=== PATIENT | male | born 1950 | race Caucasian/White ===

== ENCOUNTER → 2021-05-29 | Outpatient (CLI) | payer OTHER, BC | END | disposition home or self-care (01) | LOC: PPH VACUNA 08:00 | PROVIDERS: ATTEND Emergency Medicine Pediatric Emergency Medicine | DX: Z23 Encounter for immunization (principal) ==

== ENCOUNTER 2025-05-10 09:33 | Emergency (ER) | payer OTHER ==
[~2025-05-10] VITALS: Ht 172.7 cm; Wt 81.6 kg
[2025-05-10] MEDS ORDERED: EZALLOR SPRINKLE5 MG (10:03)
[2025-05-10] MEDS ORDERED: ONDANSETRON HCL 4 MG in 0.9 % SODIUM CHLORIDE 50 ML IV ONE (10:30)
[2025-05-10] MEDS ORDERED: FAMOTIDINE/PF 20 MG in 0.9 % SODIUM CHLORIDE 8 ML IV PUSH ONE (10:30)
[2025-05-10] MEDS ORDERED: 0.9 % SODIUM CHLORIDE 1,000 ML IV SCH (10:30)
[2025-05-10 11:55] LABS: BASO % 0.7 % (0.1-1.2); EOS # 0.23 (0.04-0.54); EOS % 2.7 % (0.7-7.0); LYMPH # 1.69 (1.18-3.74); LYMPH % 19.9 % (19.3-53.1); MEAN PLATELET VOLUME 10.50 fl (9.4-12.4); MONO # 0.99 (0.24-0.82); MONO % 11.7 % (4.7-12.5); NEUT # 5.48 (1.56-6.13); NEUT % 64.5 % (34.0-71.1); RED CELL DISTRIBUTION WIDTH 13.0 % (11.6-14.4)
[2025-05-10 12:20] LABS: INR 0.95
[2025-05-10 12:29] LABS: ALT/SGPT 32.0 U/L (12-78); AST/SGOT 19.0 U/L (15-37); BILIRUBIN TOTAL 0.79 mg/dL (0.3-1.2); BUN CREA RATIO 18.0 (7.0-25.0); CREATININE SERUM 1.42 mg/dL (0.70-1.30); GFR 48.87; GLOBULINA 4.1 G/DL (2.4-3.5); GLUCOSE FASTING 96.0 mg/dL (65-100); OSMOLALITY SERUM 284.0 MOSM/KG (275-295)
[2025-05-10] MEDS ORDERED: PIPERACILLIN/TAZOBACTAM SODIUM 3.375 GM in DEXTROSE 5 % IN WATER 100 ML IV ONE (15:00)
[2025-05-10] MEDS ORDERED: POLYETHYLENE GLYCOL 3350 17 GM BLIST.PACK PO ONE (15:00)
[2025-05-10] MEDS ORDERED: DICY20TA PO (15:07)
[2025-05-10] MEDS ORDERED: INTESTINEX680 M1 PO (15:07)
[2025-05-10] MEDS ORDERED: PEPCID AC20 MG PO (15:07)
[2025-05-10] MEDS ORDERED: AMOX1TAB5 PO (15:07)
[2025-05-10] MEDS ORDERED: MIRALAX17 GM PO (15:07)
[2025-05-10] MEDS ORDERED: PIPERACILLIN/TAZOBACTAM SODIUM 3.375 GM VIAL IV ONE (15:12)
== END 2025-05-10 16:18 | disposition home or self-care (01) ==
LOC: ER 09:33
PROVIDERS: General Practice
DX: R10.32 Left lower quadrant pain (principal); K57.32 Diverticulitis of large intestine without perforation or abscess without bleeding; K59.00 Constipation, unspecified
CPT/HCPCS: 74176; 96365; 96366; 99283; J2405; J2543; J3490; J7030

== ENCOUNTER 2025-05-13 09:41 | Inpatient (IN) | payer OTHER ==
[~2025-05-13] VITALS: Ht 182.9 cm; Wt 81.6 kg
[~2025-05-13 09:41] MED LIST: AMOX1TAB5 PO; DICY20TA PO; EZALLOR SPRINKLE5 MG; INTESTINEX680 M1 PO; MIRALAX17 GM PO; PEPCID AC20 MG PO
[2025-05-13] MEDS ORDERED: ABATINEX680 MG PO (12:24)
[2025-05-13] MEDS ORDERED: DICYCLOMIN10 MG/5 M1 (12:25)
--- NOTE | 2025-05-13 12:32 | NUR ---
S ERECIBE PACIENTE ALERTA Y CONCIENTE X3. EL MISMO REFIERE TENER DOLOR ABDOMINAL Y VENIR POT DIOVERTICULITIS. SE PROCEDE A KAJAL S/V A PACIENTE Y SE REALIZA EKG AL MISMO. TEMI ES EVALUADO POR LA DR. MALDONADO QUIEN INDICA ACOSTAR A PACIENTE. SE PROCEDE A UBICAR A PACIENTE EN [place] 11 CON BARANDAS ELEVADAS Y NIVEL MAS BAJO DE LA MISMA.
[2025-05-13] MEDS ORDERED: KETOROLAC TROMETHAMINE 30 MG VIAL IV ONE ×2 (13:00→15:15)
[2025-05-13] MEDS ORDERED: ENALAPRILAT DIHYDRATE 1.25 MG/ML VIAL IV ONE ×2 (13:00→13:17)
[2025-05-13] MEDS ORDERED: METRONIDAZOLE/SODIUM CHLORIDE 500 MG/100 ML PIGGYBACK IV ONE ×2 (13:00→13:18)
[2025-05-13] MEDS ORDERED: ONDANSETRON HCL 2 MG/ML VIAL IV ONE (13:00)
[2025-05-13] MEDS ORDERED: FAMOTIDINE/PF 20 MG/2 ML VIAL IV ONE (13:00)
[2025-05-13] MEDS ORDERED: CIPROFLOXACIN IN 5 % DEXTROSE 400 MG/200 ML PIGGYBAG IV ONE ×2 (13:00→13:17)
[2025-05-13] MEDS ORDERED: KETOROLAC TROMETHAMINE 30 MG VIAL ONE ×2 (13:17→15:45)
[2025-05-13] MEDS ORDERED: ONDANSETRON HCL 2 MG/ML VIAL ONE (13:17)
[2025-05-13] MEDS ORDERED: FAMOTIDINE/PF 20 MG/2 ML VIAL ONE (13:18)
--- NOTE | 2025-05-13 13:54 | NUR ---
PTE EVALUIADA POR ERICA DANG ORDENA TRATAMIENTO LA CUAL SE EJECUTA. E SE LLEVA A PTE A ESTUDIO DE CT SCAN.
[2025-05-13 14:16] LABS: BASO % 0.5 % (0.1-1.2); EOS # 0.22 (0.04-0.54); EOS % 3.0 % (0.7-7.0); LYMPH # 2.24 (1.18-3.74); LYMPH % 30.4 % (19.3-53.1); MEAN PLATELET VOLUME 10.50 fl (9.4-12.4); MONO # 0.78 (0.24-0.82); MONO % 10.6 % (4.7-12.5); NEUT # 4.08 (1.56-6.13); NEUT % 55.2 % (34.0-71.1); RED CELL DISTRIBUTION WIDTH 12.9 % (11.6-14.4)
[2025-05-13 14:22] LABS: ERYTHROCYTE SEDIMENTATION RATE 11 mm/hr (0-20)
[2025-05-13 14:43] LABS: INR 1.01
[2025-05-13 14:49] LABS: ALT/SGPT 27.0 U/L (12-78); AST/SGOT 20.0 U/L (15-37); BILIRUBIN TOTAL 0.79 mg/dL (0.3-1.2); BUN CREA RATIO 12.0 (7.0-25.0); CREATININE SERUM 1.21 mg/dL (0.70-1.30); GFR 58.78; GLOBULINA 4.0 G/DL (2.4-3.5); GLUCOSE FASTING 92.0 mg/dL (65-100); OSMOLALITY SERUM 281.0 MOSM/KG (275-295)
[2025-05-13] MEDS ORDERED: DIPHENHYDRAMINE HCL 50 MG/ML VIAL 1ML ONE (19:43)
[2025-05-13] MEDS ORDERED: METHYLPREDNISOLONE SOD SUCC 125 MG VIAL ONE (19:43)
[2025-05-13] MEDS ORDERED: 0.9 % SODIUM CHLORIDE 1,000 ML IV SCH (20:30)
[2025-05-13] MEDS ORDERED: ACETAMINOPHEN 325 MG TABLET PO PRN (20:30)
[2025-05-13] MEDS ORDERED: hydrALAZINE HCL 20 MG VIAL IV PRN (20:30)
[2025-05-13] MEDS ORDERED: ONDANSETRON HCL 4 MG in 0.9 % SODIUM CHLORIDE 50 ML IV PRN (20:30)
[2025-05-14] MEDS ORDERED: PIPERACILLIN/TAZOBACTAM SODIUM 3.375 GM in 0.9 % SODIUM CHLORIDE 100 ML IV SCH
[2025-05-14] MEDS ORDERED: PIPERACILLIN/TAZOBACTAM SODIUM 3.375 GM VIAL IV ONE ×4 (00:45→14:13)
[2025-05-14 01:09] VITALS: BP 130/81; O2SAT 96
[2025-05-14 01:11] LABS: URINE APPEARANCE Clear; URINE BILIRRUBIN Negative (NEGATIVE); URINE BLOOD Negative; URINE COLOR Yellow; URINE GLUCOSE Negative (NEGATIVE); URINE KETONE 15 (NEGATIVE); URINE LEUKOCYTE Negative; URINE NITRATE Negative; URINE PROTEIN Negative (NEGATIVE); URINE UROBILINOGEN 1.0 E.U./dl
[2025-05-14 01:14] LABS: URINE EPITHELIAL CELLS 5.0 uL (0.0-38.8); URINE RBC 7.3 uL (0.0-20.8); URINE WBC 2.7 uL (0.0-23.2)
[2025-05-14 01:24] LABS: URINE BACTERIA 3.5 uL (0.0-1933); URINE CAST 0.43 uL (0.0-1.40)
[2025-05-14 07:03] VITALS: BP 130/81
[2025-05-14 08:03] VITALS: BP 135/88; O2SAT 99
[2025-05-14] MEDS ORDERED: FAMOTIDINE/PF 20 MG/2 ML VIAL IV SCH (09:00)
[2025-05-14] MEDS ORDERED: FAMOTIDINE/PF 20 MG/2 ML VIAL ONE (09:14)
[2025-05-14] MEDS ORDERED: MAGNESIUM HYDROXIDE 400 MG/5 ML ML PO STA (14:55)
[2025-05-14] MEDS ORDERED: LACTULOSE 20 G/30 ML BLIST.PACK PO STA (14:55)
[2025-05-14] MEDS ORDERED: MINERAL OIL 30 ML BLIST.PACK PO STA (14:56)
[2025-05-14] MEDS ORDERED: DOCUSATE SODIUM 100MG CAP PO SCH (14:56)
[2025-05-14 16:00] VITALS: BP 162/90; O2SAT 98
[2025-05-14] MEDS ORDERED: LACTULOSE 20 G/30 ML BLIST.PACK ONE (16:19)
[2025-05-14] MEDS ORDERED: MAGNESIUM HYDROXIDE 30 ML BLIST.PACK PO ONE (16:19)
[2025-05-14] MEDS ORDERED: MINERAL OIL 30 ML BLIST.PACK ONE (16:19)
[2025-05-14] MEDS ORDERED: ACETAMINOPHEN 500 MG GEL..CAP PO PRN (17:15)
[2025-05-14 19:57] VITALS: BP 159/99; O2SAT 97
[2025-05-14] MEDS ORDERED: SODIUM CL 0.9% 100 ML IV.SOLN IV ONE (22:29)
[2025-05-15] MEDS ORDERED: AMLODIPINE BESYLATE 5 MG TABLET PO SCH (00:24)
[2025-05-15 00:30] VITALS: BP 113/70; O2SAT 100
[2025-05-15 08:30] VITALS: BP 122/80; O2SAT 96
[2025-05-15] MEDS ORDERED: POLYETHYLENE GLYCOL 3350 17 GM BLIST.PACK PO SCH (09:00)
[2025-05-15] MEDS ORDERED: ENOXAPARIN SODIUM 40 MG/0.4 ML SYRINGE SUBCUTANEO SCH (09:00)
[2025-05-15 16:00] VITALS: BP 126/79; O2SAT 98
[2025-05-16 01:00] VITALS: BP 135/79; O2SAT 100
[2025-05-16 06:38] LABS: BASO % 1.3 % (0.1-1.2); EOS # 0.56 (0.04-0.54); EOS % 7.2 % (0.7-7.0); LYMPH # 1.94 (1.18-3.74); LYMPH % 25.0 % (19.3-53.1); MEAN PLATELET VOLUME 10.90 fl (9.4-12.4); MONO # 0.95 (0.24-0.82); NEUT # 4.20 (1.56-6.13); NEUT % 54.2 % (34.0-71.1); RED CELL DISTRIBUTION WIDTH 13.2 % (11.6-14.4)
[2025-05-16 06:51] LABS: MONO % 12.2 % (4.7-12.5)
[2025-05-16 07:10] LABS: ALT/SGPT 22.0 U/L (12-78); AST/SGOT 25.0 U/L (15-37); BILIRUBIN TOTAL 0.87 mg/dL (0.3-1.2); BUN CREA RATIO 6.0 (7.0-25.0); CREATININE SERUM 1.4 mg/dL (0.70-1.30); GFR 49.68; GLOBULINA 3.0 G/DL (2.4-3.5); GLUCOSE FASTING 90.0 mg/dL (65-100); OSMOLALITY SERUM 287.0 MOSM/KG (275-295)
[2025-05-16] MEDS ORDERED: SODIUM CHLORIDE 0.45 % 1,000 ML IV SCH (11:00)
[2025-05-16 18:02] VITALS: BP 132/71; O2SAT 99
[2025-05-17 01:55] VITALS: BP 115/71; O2SAT 97
[2025-05-17] MEDS ORDERED: AMOX-CLAV 875-1 EAC1 PO (13:09)
== END 2025-05-17 14:43 | disposition home or self-care (01) | DRG 392 ==
LOC: ER 09:41 → SEC-K 21:23 → SURH 05-14 17:06
PROVIDERS: General Practice; ADMIT Internal Medicine; ATTEND Internal Medicine
PROC: BW21YZZ Computerized Tomography (CT Scan) of Abdomen and Pelvis using Other Contrast (ICD-10-PCS; principal; 2025-05-13)
DX: K57.32 Diverticulitis of large intestine without perforation or abscess without bleeding (principal); K59.00 Constipation, unspecified; I10 Essential (primary) hypertension; E78.5 Hyperlipidemia, unspecified